=== PATIENT | female | born 1950 | race Caucasian/White ===

== ENCOUNTER → 2016-11-21 | Outpatient (CLI) | payer MEDICARE, OTHER ==
--- NOTE | 2016-11-21 13:40 | RADIOLOGY REPORT PS360 ---
History and Indications: Hypertension, hyperlipidemia, family history shortness of breath and abnormal EKG. Procedure: Patient exercised on Santosh protocol 6 metastases, resting heart rate was 65 beats per resting blood pressure was 162/81, with exercise maximum heart rate achieved was 80 33 bpm which is equal to 88% of the maximum predicted heart rate and a blood pressure was 230/80. Test was stopped due to shortness of breath and fatigue patient denied complained of chest pain. Patient has adequate exercise capacity achieved 7METS of workload on treadmill, the blood pressure response to exercise was hypertensive. Electrocardiogram: Sinus rhythm, with exercise there is less than 1.[address] segment depression noted from the baseline EKG. The EKG portion of the exercise Myoview is negative for ischemia. Cardiac stress and resting SPECT images: Cardiac stress and the suspect images were obtained using technetium 99 Myoview 10.7 mCi at rest, and the 32.2 mCi at stress, gated SPECT further analysis of segmental wall motion and calculation of the ejection fraction was also done. Cardiac stress and the suspect images show uniform myocardial activity without any segmental perfusion abnormality, computer derived ejection fraction is over 65% with no obvious regional wall motion abnormality, right ventricle is mildly enlarged with normal contractility. Conclusion: 1. The EKG portion of the exercise Myoview is negative for ischemia, patient has adequate exercise capacity achieved 7METS of workload on treadmill, the blood pressure response to exercise was hypertensive there was no exercise-induced chest discomfort. 2. No obvious scintigraphic evidence of reversible ischemia seen. Computer derived ejection fraction is over 65% with no obvious regional wall motion abnormality, right ventricle is mildly enlarged with normal contractility.
== END ==
LOC: RAD 06:23
DX: R94.31 Abnormal electrocardiogram [ECG] [EKG] (principal); E78.5 Hyperlipidemia, unspecified
CPT/HCPCS: A9502